=== PATIENT | female | born 1995 | race Two or more races ===

== ENCOUNTER 2019-06-16 11:58 | Emergency (ER) | payer SELFPAY ==
[~2019-06-16] VITALS: Ht 152.4 cm; Wt 67.1 kg
[2019-06-16 13:55] VITALS: BP 112/69
[2019-06-16] MEDS ORDERED: AMOX1TAB61 PO (14:16)
--- NOTE | 2019-06-16 14:19 | PHYS DOC ---
Past Medical History Past Medical History: No Pertinent History Past Surgical History: Appendectomy Smoking Status: Never Smoker Alcohol Use: Rarely Drug Use: None Adult General Chief Complaint Chief Complaint: ANIMAL BITE HPI HPI Patient is a 24 year old female who presents with dog bite to left breast. Rodrigue rush reports may have struck a dog yesterday while driving, they went to tack picker dog and dog had snapped and bit her in the left breast. States they still have the dog, the dog has been acting normal. States they do not know the dog, however animal control is coming to get the dog today. States dog is acting normal today. States no fever. States she did not take any medications for this today. States she is 22 weeks , has follow-up with her [employer] on . States she believes her last tetanus shot was 6 years ago Review of Systems Review of Systems Constitutional: Denies fever or chills [] Eyes: Denies change in visual acuity, redness, or eye pain [] HENT: Denies nasal congestion or sore throat [] Respiratory: Denies cough or shortness of breath [] Cardiovascular: No additional information not addressed in HPI [] GI: Denies abdominal pain, nausea, vomiting, bloody stools or diarrhea [] : Denies dysuria or hematuria [] Musculoskeletal: Denies back pain or joint pain [] Integument: Denies rash complains of lesion to left superior breast. [] Neurologic: Denies headache, focal weakness or sensory changes [] Endocrine: Denies polyuria or polydipsia [] All other systems were reviewed and found to be within normal limits, except as documented in this note. Allergies Allergies Allergies Coded Allergies Type Severity Reaction Last Updated Verified No Known Drug Allergies 01/07/14 No Physical Exam Physical Exam Constitutional: Well developed, well nourished, no acute distress, non-toxic appearance. [] Eyes: PERRLA, EOMI, conjunctiva normal, no discharge. [] Neck: Normal range of motion, no tenderness, supple, no stridor. [] Cardiovascular:Heart rate regular rhythm, no murmur [] Lungs & Thorax: Bilateral breath sounds clear to auscultation [] Abdomen: Bowel sounds normal, soft, no tenderness, no masses, no pulsatile masses. [] Skin: Warm, dry, no erythema, no rash. Small singular puncture wound noted to left breast, 12 clock position to nipple, approximately 3 cm proximal to the nipple line. No surrounding erythema. No tenderness. No purulence noted. No mass noted. [] Back: No tenderness, no CVA tenderness. [] Extremities: No tenderness, no cyanosis, no clubbing, ROM intact, no edema. [] Neurologic: Alert and oriented X 3, normal motor function, normal sensory function, no focal deficits noted. No photophobia [] Psychologic: Affect normal, judgement normal, mood normal. [] Current Patient Data Vital Signs Vital Signs Date Time Temp Pulse Resp B/P (MAP) Pulse Ox O2 Delivery O2 Flow Rate FiO2 06/16/19 12:24 98.0 100 18 112/69 (83) 99 Room Air 98.0 EKG EKG [] Radiology/Procedures Radiology/Procedures [] Course & Med Decision Making Course & Med Decision Making Pertinent Labs and Imaging studies reviewed. (See chart for details) [] Discuss concerns for rabies, with unknown dog. Patient reports she is not worried about the dog. Advise patient if she is concerned, rabies treatment may be started, however she would prefer to have the dog monitored first. Will prescribe antibiotics at this time. Patient to follow-up with her [employer]. Anyi Disclaimer Anyi Disclaimer This electronic medical record was generated, in whole or in part, using a voice recognition dictation system. Departure Departure Impression: Primary Impression: Dog bite Disposition: 01 HOME, SELF-CARE Condition: STABLE Referrals: UNKNOWN PCP NAME (PCP) Patient Instructions: Animal Bite, [id number] Additional Instructions: As we discussed, take the antibiotic as prescribed. Follow the recommendations of animal control regarding the dog. If you notice any more redness, pain, swel ling, or discharge coming from your sore, follow-up with your primary care provider, or return to the ER sooner. Scripts Amoxicillin/Potassium Clav (AUGMENTIN 875-125 TABLET) 1 Each Tablet 1 TAB PO BID for 7 Days, #14 TAB 0 Refills Prov: OMAIRA SIMPSON APRN 06/16/19 Problem Qualifiers Primary Impression: Dog bite Encounter type: initial encounter Qualified Codes: W54.0XXA - Bitten by dog, initial encounter OMAIRA SIMPSON APRN Jun 16, 2019 14:19
[2019-06-16] MEDS: DIPH,PERTUSS(ACELL),TET VAC/PF 0.5 ML SYRINGE. VAX IM ONE (14:39)
== END 2019-06-16 14:42 | disposition home or self-care (01) ==
LOC: ER 11:58
DX: O9A.212 Injury, poisoning and certain other consequences of external causes complicating pregnancy, second trimester (principal); S21.032A Puncture wound without foreign body of left breast, initial encounter; Z3A.22 22 weeks gestation of pregnancy; W54.0XXA Bitten by dog, initial encounter; Y93.89 Activity, other specified; Y92.89 Other specified places as the place of occurrence of the external cause; Y99.8 Other external cause status
CPT/HCPCS: 90471; 90715; 99283